=== PATIENT | male | born 2000 | race Caucasian/White ===

== ENCOUNTER 2025-02-14 20:27 | Emergency (ER) | payer OTHER, SELFPAY ==
[2025-02-14 20:34] VITALS: BP 145/82
[2025-02-14] MEDS: AMOXIL 500 MG PO (22:17)
[2025-02-14] MEDS: OCUFLOX 1 DROP OTIC (22:17)
--- NOTE | 2025-02-14 22:17 | ED.GENMED ---
History of Present Illness
General
Chief Complaint: Ear Problem
Source: patient
Exam Limitations: none
Time Seen by Provider: 02/14/25 21:25
Nursing documentation reviewed up to this point in time: agreed with
History of Present Illness
History of Present Illness:
Patient is a 24-year-old male he complains of pain to the left ear for the past 2 days. He does report ear is also sore to touch. He does use ear curettes daily to clean his wax. He denies any fever or chills. No other complaints.
Past History
Past History
ED Past Medical History: None
ED Past Surgical History: None
Review of Systems
Review of Systems
Allergies reviewed?: Yes
All Other Systems: ROS reviewed and negative except as documented in HPI and ROS
Constitutional: Reports no symptoms; Denies fever, fatigue or chills
EENT: Reports other (Left ear pain, denies drainage.)
Respiratory: Reports no symptoms
Skin: Reports no symptoms
Neurological: Reports no symptoms; Denies headache
Psychiatric: Reports no symptoms
Phy Exam
General Physical Exam
General Presentation: no apparent distress
General age: appears stated age
General Skin: warm and dry
General Habitus: normal
General Mental: alert
General Hydration: appears well hydrated
ENT Exam
ENT Exam: other (Right TM is normal canal clear left canal is very swollen inflamed unable to fully visualize TM. No drainage no mastoid tenderness mild tenderness over tragus)
Neurological Exam
Neurological Exam: alert and oriented x3
Musculoskeletal Exam
Musculoskeletal Exam: full ROM
Skin Exam
Skin Exam: normal color and warm/dry
Psychiatric Exam
Psychiatric Exam: normal mood/affect
Course
Orders/Labs/Results
Orders:
Orders
02/14/25 22:09
Amoxicillin [Amoxil] 500 mg PO NOW STA
02/14/25 22:13
Ofloxacin [Ocuflox] See Dose Instructions [facility] NOW STA
02/15/25 08:00
Ofloxacin [Ocuflox] See Dose Instructions [facility] DAILY
Vital Signs
Initial and Last Documented VS:
Initial Vital Signs
Temp Pulse Resp BP Pulse Ox
97.3 F 102 18 145/82 100
02/14/25 20:34 02/14/25 20:34 02/14/25 20:34 02/14/25 20:34 02/14/25 20:34
Last Documented Vital Signs
Temp Pulse Resp BP Pulse Ox
97.3 F 102 18 145/82 100
02/14/25 20:34 02/14/25 20:34 02/14/25 20:34 02/14/25 20:34 02/14/25 20:34
MDM/Problems Addressed
Differential Diagnosis Includes:
not limited to: Otitis media/externa
MDM/Problems Addressed:
Patient complains of left ear pain admits to cleaning his ears out with earwax curette daily. His canal is obviously inflamed and infected I am unable to visualize TM will DC with antibiotic eardrops as well as oral antibiotic for possible otitis
media. Discussed close outpatient follow-up with family doctor for reevaluation next 2 days. Also I did educate patient on the importance of not sticking anything in his ears or cleaning his ears this way I did recommend Debrox once symptoms are
improved if he has problems with wax buildup. He is in no acute distress nontoxic afebrile stable for discharge fuentes
*Pulse Oximetry
Patient hypoxic: no
*Critical Care Note
Total Time (30-74mins, 75-104mins- exclusive of procedures): Not Applicable
ED Attending Note
-
Portions of this chart may have been created with voice recognition software.� Occasional wrong word or��sound alike� substitutions may have occurred due to the inherent limitations of voice recognition software.
Discharge Plan
Departure
Patient Disposition: Home (Routine Discharge)
Date of Disposition: 02/14/25
Time of Disposition: 22:10
Patient with high blood pressure during this ER visit?: Yes
Condition: Fair
Covid-19: Not Applicable
Discharge Problem:
Acute Otitis Externa
Instructions: Outer Ear Infection (DC), BLOOD PRESSURE
Prescriptions:
New
ofloxacin 0.3 % drops
10 drp otic (ear) ONCE 7 Days Qty: 10 0RF
Rx Instructions:
10 drops to left ear once a day
amoxicillin 500 mg tablet
500 mg PO Q8H Qty: 30 0RF
No Action
venlafaxine [Effexor] 50 mg Tablet
50 mg PO DAILY
multivitamin Tablet,Chewable
1 tab PO DAILY
Patient Comments:
GUMMY
Referrals:
Barrington Payan MD [Family Provider] -
Activity Restrictions/Additional Instructions:
As discussed it is difficult to visualize your middle ear and so you will be prescribed both oral antibiotic as well as antibiotic eardrops. You have an outer ear infection on exam.
As discussed please stop using anything in your ear to clean the wax; you may use Debrox once symptoms are improved if needed. Please follow-up closely with your family doctor for reevaluation in the next several days. Return if any worsening of
symptoms.
These medications were sent to your pharmacy.
Interventions
Interventions:
*Risk Screen - Suicide Last Done: 02/14/25 20:34
*General Assessment Last Done: 02/14/25 21:08
*Neglect/Abuse Screening Last Done: 02/14/25 21:08
*ED COVID-19 Vaccine History Last Done: 02/14/25 21:08
Discharge Date and Time
Print Language: GAMBIAN
== END 2025-02-14 22:24 | disposition home or self-care (01) ==
LOC: EMR 20:27
PROVIDERS: EMERGENCY PHYSICIAN Student in an Organized Health Care Education/Training Program; FAMILY PHYSICIAN Internal Medicine
DX: H60.502 Unspecified acute noninfective otitis externa, left ear (principal)
CPT/HCPCS: 99283